=== PATIENT | male | born 1980 | race Caucasian/White ===

== ENCOUNTER 2021-06-08 12:28 | Emergency (ER) | payer OTHER ==
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
[2021-06-08] MEDS ORDERED: Ibuprofen 400 MG Tab PO ONE (13:01)
== END 2021-06-08 13:14 ==
LOC: JP.ED 12:28
DX: S04.51XA Injury of facial nerve, right side, initial encounter (principal); Z88.0 Allergy status to penicillin; Z72.0 Tobacco use; X58.XXXA Exposure to other specified factors, initial encounter
CPT/HCPCS: 99284